=== PATIENT | female | born 1980 | race American Indian/Alaskan Native ===

== ENCOUNTER 2017-11-23 02:13 | Emergency (ER) | payer OTHER ==
[2017-11-23 05:47] LABS: Basophils % (Auto) 0.4 % (0.0-1.8); Eosinophils # (Auto) 0.1 K/mm3 (0.0-0.4); Eosinophils % (Auto) 1.3 % (0.0-4.3); Hematocrit 35.3 % (30.3-42.9); Hemoglobin 11.4 gm/dl (10.1-14.3); Lymphocytes # (Auto) 2.1 K/mm3 (1.2-5.4); Lymphocytes % (Auto) 21.6 % (13.4-35.0); Mean Corpuscular HGB Conc 32 % (30-34); Mean Corpuscular Volume 78 fl (79-97); Monocytes # (Auto) 0.6 K/mm3 (0.0-0.8); Monocytes % (Auto) 6.4 % (0.0-7.3); Red Blood Count 4.53 M/mm3 (3.65-5.03)
[2017-11-23 05:48] LABS: Mean Corpuscular Hemoglobin 25 pg (28-32); Platelet Count 271 K/mm3 (140-440); Red Cell Distribution Width 21.8 % (13.2-15.2)
[2017-11-23 05:54] LABS: BUN/Creatinine Ratio 12; Blood Urea Nitrogen 7 mg/dL (7-17); Calcium 9.6 mg/dL (8.4-10.2); Hemolysis Index 9
[2017-11-23 06:11] LABS: Bacteria,Urine 1+ /HPF (Negative); Bilirubin,Urine NEG (Negative); Blood,Urine MOD (Negative); Color,Urine Yellow (Yellow); Mucus,Urine FEW /HPF; Urobilinogen,Urine < 2.0 mg/dL (<2.0)
--- NOTE | 2017-11-23 08:25 | Emergency Department Report ---
ED General Adult HPI - General Chief complaint: Abdominal Pain Stated complaint: ABD PAIN Time Seen by Provider: 11/23/17 07:24 Source: patient Mode of arrival: Ambulatory Limitations: No Limitations - History of Present Illness Initial comments: 37-year-old female now 4 para 3. She states her last menstrual period was 2 months ago. She noticed some blood in her urine and some mild dysuria. Therefore she came to the emergency room for evaluation. She is not complaining of abdominal pain. She states that she has had some nausea but is not nauseated now. 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 She denies fever or chills. -: Gradual Consistency: now resolved (nausea resolved did not complain of abdominal pain) Improves with: none Worsens with: none Associated Symptoms: denies other symptoms, other (hematuria and dysuria) Treatments Prior to Arrival: none - Related Data Previous Rx's Medication Instructions Recorded Last Taken Type Nitrofurantoin Monohyd/M-Cryst 100 mg PO BID #14 capsule 11/23/17 Unknown Rx [Macrobid 100 mg Capsule] Allergies Allergy/AdvReac Type Severity Reaction Status Date / Time No Known Allergies Allergy Unverified 11/23/17 05:22 ED Review of Systems ROS: Stated complaint: ABD PAIN Other details as noted in HPI Constitutional: denies: chills, fever Eyes: denies: eye pain, eye discharge, vision change ENT: denies: ear pain, throat pain Respiratory: denies: cough, shortness of breath, wheezing Cardiovascular: denies: chest pain, palpitations Endocrine: no symptoms reported Gastrointestinal: nausea. denies: abdominal pain, diarrhea Genitourinary: dysuria, hematuria, other (no apparent vaginal bleeding). denies : urgency, discharge Musculoskeletal: denies: back pain, joint swelling, arthralgia Skin: denies: rash, lesions Neurological: denies: headache, weakness, paresthesias Psychiatric: denies: anxiety, depression Hematological/Lymphatic: denies: easy bleeding, easy bruising ED Past Medical Hx - Past Medical History Previous Medical History?: No - Surgical History Additional Surgical History: X 2. - Social History Smoking Status: Never Smoker Substance Use Type: None - Medications Home Medications: Home Medications Medication Instructions Recorded Confirmed Last Taken Type Nitrofurantoin Monohyd/M-Cryst 100 mg PO BID #14 capsule 11/23/17 Unknown Rx [Macrobid 100 mg Capsule] ED Physical Exam - General Limitations: No Limitations General appearance: alert, in no apparent distress - Head Head exam: Present: atraumatic, normocephalic - Eye Eye exam: Present: normal appearance. Absent: scleral icterus - ENT ENT exam: Present: mucous membranes moist - Neck Neck exam: Present: normal inspection - Respiratory Respiratory exam: Present: normal lung sounds bilaterally. Absent: respiratory distress - Cardiovascular Cardiovascular Exam: Present: regular rate, normal rhythm. Absent: systolic murmur, diastolic murmur, rubs, gallop - GI/Abdominal GI/Abdominal exam: Present: soft, normal bowel sounds. Absent: distended, tenderness, guarding, rebound, rigid - Extremities Exam Extremities exam: Present: normal inspection - Back Exam Back exam: Present: normal inspection - Neurological Exam Neurological exam: Present: alert, oriented X3, CN II-XII intact. Absent: motor sensory deficit - Psychiatric Psychiatric exam: Present: normal affect, normal mood - Skin Skin exam: Present: warm, dry, intact, normal color. Absent: rash ED Course Vital Signs 11/23/17 03:19 Temperature 98.1 F Pulse Rate 77 Respiratory 18 Rate Blood Pressure 153/88 O2 Sat by Pulse 100 Oximetry ED Medical Decision Making - Lab Data Result diagrams: 11/23/17 05:26 11/23/17 05:26 Laboratory Results - last 24 hr 11/23/17 11/23/17 11/23/17 05:26 05:26 05:26 WBC 9.8 RBC 4.53 Hgb 11.4 Hct 35.3 MCV 78 L MCH 25 L MCHC 32 RDW 21.8 H Plt Count 271 Lymph % (Auto) 21.6 Mccormick % (Auto) 6.4 Eos % (Auto) 1.3 Baso % (Auto) 0.4 Lymph # 2.1 Mccormick # 0.6 Eos # 0.1 Baso # 0.0 Seg Neutrophils % 70.3 H Seg Neutrophils # 6.9 Sodium 138 Potassium 4.1 Chloride 99.4 Carbon Dioxide 24 Anion Gap 19 BUN 7 Creatinine 0.6 L Estimated GFR > 60 BUN/Creatinine Ratio 12 Glucose 93 Calcium 9.6 HCG, Qual Positive HCG, Quant Urine Color Urine Turbidity Urine pH Ur Specific Irving Urine Protein Urine Glucose (UA) Urine Ketones Urine Blood Urine Nitrite Urine Bilirubin Urine Urobilinogen Ur Leukocyte Esterase Urine WBC (Auto) Urine RBC (Auto) U Epithel Cells (Auto) Urine Bacteria (Auto) Urine Mucus 11/23/17 11/23/17 05:56 Unknown WBC RBC Hgb Hct MCV MCH MCHC RDW Plt Count Lymph % (Auto) Mccormick % (Auto) Eos % (Auto) Baso % (Auto) Lymph # Mccormick # Eos # Baso # Seg Neutrophils % Seg Neutrophils # Sodium Potassium Chloride Carbon Dioxide Anion Gap BUN Creatinine Estimated GFR BUN/Creatinine Ratio Glucose Calcium HCG, Qual HCG, Quant 33272 H Urine Color Yellow Urine Turbidity Cloudy Urine pH 7.0 Ur Specific Irving 1.012 Urine Protein 30 mg/dl Urine Glucose (UA) Neg Urine Ketones Neg Urine Blood Mod Urine Nitrite Neg Urine Bilirubin Neg Urine Urobilinogen < 2.0 Ur Leukocyte Esterase Lg Urine WBC (Auto) 37.0 H Urine RBC (Auto) 19.0 U Epithel Cells (Auto) 27.0 H Urine Bacteria (Auto) 1+ Urine Mucus Few - Radiology Data Radiology results: report reviewed (single live 8 week 5 day intrauterine ) Critical care attestation.: If time is entered above; I have spent that time in minutes in the direct care of this critically ill patient, excluding procedure time. ED Disposition Clinical Impression: with 8 completed weeks gestation UTI (urinary tract infection) Qualifiers: Urinary tract infection type: site unspecified Hematuria presence: with hematuria Qualified Code(s): N39.0 - Urinary tract infection, site not specified ; R31.9 - Hematuria, unspecified Disposition: DC-01 TO HOME OR SELFCARE Is pt being admited?: No Does the pt Need Aspirin: No Condition: Stable Instructions: Abdominal Pain (ED) Additional Instructions: Follow-up with marine fire fighter. Return any acute change or problem. Rx Macrobid. Follow-up on your urine culture which will be ready in about 3 days. Prescriptions: Nitrofurantoin Monohyd/M-Cryst [Macrobid 100 mg Capsule] 100 mg PO BID #14 capsule Referrals: PRIMARY CAREMD [Primary Care Provider] - 3-5 Days VIOLETA SOTELO MD [Staff Physician] - 3-5 Days Time of Disposition: 09:13
--- NOTE | 2017-11-23 08:42 | Ultrasound Report ---
FINAL REPORT EXAM: TRANSVAGINAL US OBSTETRIC HISTORY: abd/pelvic pain COMPARISONS: None. FINDINGS: Transvaginal grayscale, color Doppler and M-mode first-trimester ultrasound Anteverted uterus contains a single living intrauterine with recorded cardiac activity of 170 beats per minute and crown-rump length of approximately 21 millimeters corresponding to estimated gestational age of 8 weeks 5 days and delivery date of 06/30/2018. No significant free fluid in the pelvis. Normal appearing yolk sac measures approximately 5 millimeters in diameter. No perigestational hemorrhage identified. The ovaries are sonographically unremarkable and measure 3 x 1.5 x 2.5 cm on the right and better demonstrated on transabdominal scan 4.2 x 2.3 x 3 cm on the left. IMPRESSION: Single living intrauterine without evident complication. Estimated gestational age is 8 weeks 5 days corresponding to delivery date of 06/30/2018.
--- NOTE | 2017-11-23 08:44 | Ultrasound Report ---
FINAL REPORT EXAM: OB US < 14 WKS SINGLE FETUS HISTORY: abd/pelvic pain COMPARISONS: None. FINDINGS: Transabdominal grayscale, color Doppler and M-mode first-trimester ultrasound Anteverted uterus contains a single living intrauterine with recorded cardiac activity of 170 beats per minute and crown-rump length of approximately 21 millimeters corresponding to estimated gestational age of 8 weeks 5 days and delivery date of 06/30/2018. No significant free fluid in the pelvis. Normal appearing yolk sac measures approximately 5 millimeters in diameter. No perigestational hemorrhage identified. The ovaries are sonographically unremarkable and measure 3 x 1.5 x 2.5 cm on the right and 4.2 x 2.3 x 3 cm on the left. IMPRESSION: Single living intrauterine without evident complication. Estimated gestational age is 8 weeks 5 days corresponding to delivery date of 06/30/2018.
[2017-11-23 09:52] VITALS: BP 136/72
== END 2017-11-23 09:20 | disposition home or self-care (01) ==
LOC: ED 02:13
DX: O23.41 Unspecified infection of urinary tract in pregnancy, first trimester (principal); Z3A.08 8 weeks gestation of pregnancy; R10.2 Pelvic and perineal pain
CPT/HCPCS: 36415; 76801; 76817; 80048; 81001; 84702; 84703; 85025; 87076; 87086; 87186

== ENCOUNTER 2017-12-07 17:20 | Emergency (ER) | payer OTHER ==
[2017-12-07 19:16] LABS: Basophils % (Auto) 0.3 % (0.0-1.8); Eosinophils # (Auto) 0.1 K/mm3 (0.0-0.4); Eosinophils % (Auto) 0.8 % (0.0-4.3); Hematocrit 33.9 % (30.3-42.9); Hemoglobin 10.9 gm/dl (10.1-14.3); Lymphocytes # (Auto) 1.4 K/mm3 (1.2-5.4); Lymphocytes % (Auto) 17.1 % (13.4-35.0); Mean Corpuscular HGB Conc 32 % (30-34); Mean Corpuscular Volume 80 fl (79-97); Monocytes # (Auto) 0.6 K/mm3 (0.0-0.8); Platelet Count 238 K/mm3 (140-440); Red Blood Count 4.22 M/mm3 (3.65-5.03)
[2017-12-07 19:19] LABS: Bacteria,Urine 1+ /HPF (Negative); Bilirubin,Urine NEG (Negative); Blood,Urine LG (Negative); Color,Urine Yellow (Yellow); Protein,Urine <15 mg/dL mg/dL (Negative); Urobilinogen,Urine < 2.0 mg/dL (<2.0)
[2017-12-07 19:20] LABS: Mean Corpuscular Hemoglobin 26 pg (28-32); Red Cell Distribution Width 21.4 % (13.2-15.2)
--- NOTE | 2017-12-07 22:33 | Emergency Department Report ---
ED Female HPI - General Chief complaint: Vaginal Bleeding Stated complaint: 3 MONTHS/HEAVY BLEEDING Time Seen by Provider: 12/07/17 22:25 Source: patient Mode of arrival: Ambulatory Limitations: No Limitations - History of Present Illness Initial comments: Patient is 37 years old female 4 para 3, 12 weeks . Patient presented to the ER complaining of vaginal bleeding for the last 2 weeks. Patient stated that her bleeding get worse today. Patient was seen here 2 weeks ago and had a normal ultrasound with a 12 weeks . Patient is also complaining of abdominal cramping. Patient denied any headache, chest pain or shortness of breath. MD Complaint: vaginal bleeding - Related Data Previous Rx's Medication Instructions Recorded Last Taken Type Nitrofurantoin Monohyd/M-Cryst 100 mg PO BID #14 capsule 11/23/17 Unknown Rx [Macrobid 100 mg Capsule] Allergies Allergy/AdvReac Type Severity Reaction Status Date / Time No Known Allergies Allergy Unverified 11/23/17 05:22 ED Review of Systems ROS: Stated complaint: 3 MONTHS/HEAVY BLEEDING Other details as noted in HPI Comment: All other systems reviewed and negative Constitutional: denies: chills, fever Respiratory: denies: cough, orthopnea, shortness of breath, SOB with exertion Cardiovascular: denies: chest pain, palpitations Gastrointestinal: abdominal pain Genitourinary: denies: urgency, dysuria, frequency, hematuria, discharge, abnormal menses, dyspareunia Neurological: denies: headache, weakness, numbness, paresthesias, abnormal gait ED Past Medical Hx - Past Medical History Previous Medical History?: No - Surgical History Additional Surgical History: X 3. - Social History Smoking Status: Never Smoker Substance Use Type: None - Medications Home Medications: Home Medications Medication Instructions Recorded Confirmed Last Taken Type Nitrofurantoin Monohyd/M-Cryst 100 mg PO BID #14 capsule 11/23/17 Unknown Rx [Macrobid 100 mg Capsule] ED Physical Exam - General Limitations: No Limitations General appearance: alert, in no apparent distress - Head Head exam: Present: atraumatic, normocephalic - Eye Eye exam: Present: normal appearance - ENT ENT exam: Present: normal exam, normal orophraynx, mucous membranes moist - Neck Neck exam: Present: normal inspection, full ROM. Absent: tenderness, meningismus, lymphadenopathy - Respiratory Respiratory exam: Present: normal lung sounds bilaterally. Absent: respiratory distress, wheezes, rales, rhonchi, accessory muscle use, decreased breath sounds , prolonged expiratory - Cardiovascular Cardiovascular Exam: Present: regular rate, normal rhythm, normal heart sounds - GI/Abdominal GI/Abdominal exam: Present: soft, normal bowel sounds. Absent: distended, tenderness, guarding, rebound, rigid, organomegaly, mass, bruit, pulsatile mass - Extremities Exam Extremities exam: Present: normal inspection, full ROM, normal capillary refill. Absent: pedal edema, calf tenderness - Back Exam Back exam: Present: normal inspection, full ROM - Neurological Exam Neurological exam: Present: CN II-XII intact, normal gait, reflexes normal - Skin Skin exam: Present: warm, intact, normal color ED Course Vital Signs 12/07/17 12/07/17 18:07 23:36 Temperature 99.1 F Pulse Rate 74 73 Respiratory 18 Rate Blood Pressure 138/76 Blood Pressure 149/93 [Left] O2 Sat by Pulse 100 Oximetry ED Medical Decision Making - Lab Data Result diagrams: 12/07/17 18:33 - Radiology Data Radiology results: report reviewed Referring Physician: CHRIS VILA Patient Name: NANNETTE RAMOS Date of : 1980 Sex: Female Report Date: 2017-12-07 Report Status: Finalized Findings [address] [address] Ultrasound Report Signed Patient: NANNETTE RAMOS MR#: [id number] : 1980 Acct:[id number] Age/Sex: 37 / F ADM Date: 12/07/17 Loc: ED Attending Dr: Ordering Physician: CHRIS VILA Date of Service: 12/07/17 Procedure(s): US OB <= 14 weeks fetus Accession Number(s): [id number] cc: CHRIS VILA FINAL REPORT EXAM: US OB lt; = 14 WEEKS FETUS HISTORY: 12 weeks , vaginal bleeding, hCG lower TECHNIQUE: Transabdominal grayscale, color flow and M-mode imaging of the pelvis was performed. Comparison: Ob ultrasound dated November 23, 2017 FINDINGS: The uterus measures 13.7 centimeters x 5.3 centimeters x 8.5 centimeters. There is demonstration of a single intrauterine gestation with estimated gestational age of 11 weeks 2 days by measurements of crown-rump length. heart rate is measured at 165 beats per minute. The right ovary measures 2.6 centimeters x 1.7 centimeters x 2.4 centimeters. The left ovary measures 3 centimeters x 3.2 centimeters x 2.3 centimeters. The ovaries are unremarkable in appearance. No free fluid is demonstrated in the pelvis. IMPRESSION: 1. Demonstration of a single intrauterine gestation with estimated gestational age of 11 weeks 2 days by measurements of crown-rump length and heart rate measured at 165 beats per minute. Transcribed By: ED Dictated By: JORGE LOZANO MD Electronically Authenticated By: JORGE LOZANO MD Signed Date/Time: 12/07/172325 DD/ 25 TD/TT: 12/07/172325 Critical care attestation.: If time is entered above; I have spent that time in minutes in the direct care of this critically ill patient, excluding procedure time. ED Disposition Clinical Impression: Vaginal bleeding during , Abdominal pain affecting Disposition: DC-01 TO HOME OR SELFCARE Is pt being admited?: No Condition: Stable Instructions: Abdominal Pain in (ED) Referrals: PRIMARY CAREMD [Primary Care Provider] - 3-5 Days
--- NOTE | 2017-12-07 23:27 | Ultrasound Report ---
FINAL REPORT EXAM: US OB < = 14 WEEKS FETUS HISTORY: 12 weeks , vaginal bleeding, hCG lower TECHNIQUE: Transabdominal grayscale, color flow and M-mode imaging of the pelvis was performed. Comparison: Ob ultrasound dated November 23, 2017 FINDINGS: The uterus measures 13.7 centimeters x 5.3 centimeters x 8.5 centimeters. There is demonstration of a single intrauterine gestation with estimated gestational age of 11 weeks 2 days by measurements of crown-rump length. heart rate is measured at 165 beats per minute. The right ovary measures 2.6 centimeters x 1.7 centimeters x 2.4 centimeters. The left ovary measures 3 centimeters x 3.2 centimeters x 2.3 centimeters. The ovaries are unremarkable in appearance. No free fluid is demonstrated in the pelvis. IMPRESSION: 1. Demonstration of a single intrauterine gestation with estimated gestational age of 11 weeks 2 days by measurements of crown-rump length and heart rate measured at 165 beats per minute.
[2017-12-07 23:36] VITALS: BP 149/93
== END 2017-12-08 00:30 | disposition home or self-care (01) ==
LOC: ED 17:20
DX: O46.91 Antepartum hemorrhage, unspecified, first trimester (principal); Z3A.12 12 weeks gestation of pregnancy
CPT/HCPCS: 36415; 76801; 81001; 84702; 85025; 86850; 86900; 86901; 99284

== ENCOUNTER 2017-12-19 00:18 | Emergency (ER) | payer OTHER ==
[2017-12-19 01:02] VITALS: BP 171/99
[2017-12-19] MEDS ORDERED: TYLENOL PO ONE (01:03)
[2017-12-19] MEDS ORDERED: TYLENOL ONE (01:08)
[2017-12-19 01:36] LABS: Basophils % (Auto) 0.2 % (0.0-1.8); Eosinophils # (Auto) 0.1 K/mm3 (0.0-0.4); Eosinophils % (Auto) 0.9 % (0.0-4.3); Hematocrit 34.1 % (30.3-42.9); Hemoglobin 11.1 gm/dl (10.1-14.3); Lymphocytes # (Auto) 1.5 K/mm3 (1.2-5.4); Lymphocytes % (Auto) 16.8 % (13.4-35.0); Mean Corpuscular HGB Conc 33 % (30-34); Mean Corpuscular Hemoglobin 26 pg (28-32); Mean Corpuscular Volume 81 fl (79-97); Monocytes # (Auto) 0.6 K/mm3 (0.0-0.8); Monocytes % (Auto) 6.6 % (0.0-7.3); Platelet Count 227 K/mm3 (140-440); Red Blood Count 4.21 M/mm3 (3.65-5.03)
[2017-12-19 01:42] LABS: Red Cell Distribution Width 21.2 % (13.2-15.2)
== END 2017-12-19 02:50 | disposition left against medical advice (07) ==
LOC: ED 00:18
DX: R10.9 Unspecified abdominal pain (principal); Z53.21 Procedure and treatment not carried out due to patient leaving prior to being seen by health care provider
CPT/HCPCS: 36415; 84702; 85025; 86850; 86900; 86901; 88305; 88309